=== PATIENT | female | born 1985 | race Caucasian/White ===

== ENCOUNTER 2022-04-16 12:47 | Emergency (ER) | payer BC, OTHER ==
[~2022-04-16] VITALS: Ht 154 cm; Wt 51.0 kg
[2022-04-16 12:59] VITALS: BP 109/76
[2022-04-16] MEDS ORDERED: TETANUS,DIPTH,PERTUSS P/F (BOOSTRIX) 0.5 ML VIAL IM ONE (13:15)
[2022-04-16] MEDS ORDERED: AUGMENTIN 875 MG TAB (AMOXICILLIN/CLAVULANATE) PO ONE (13:15)
--- NOTE | 2022-04-16 13:15 | ED Integumentary General ---
General Chief Complaint: Bite-Animal/Human/Insect Stated Complaint: ANIMAL BITE Nursing Triage Note: Patient has presented to ER with cc of a mouse bite to her right ring finger. She reports that at about 0300 this morning she picked up a stiky trap the the mouse bit her finger. She washed her finger well with water and peroxide, she used triple antibiotic ointment. She came to ER this after noon for evaluation of the bite. Source: patient Exam Limitations: no limitations History of Present Illness Date Seen by Provider: Apr 16, 2022 Time Seen by Provider: 12:57 Initial Comments This is a 37-year-old female who presented the ER with concerns of a mouse bite to her right fourth finger pad. States that around 0300 this morning she picked up a sticky pad the mouse was adhered to and it bit her finger. Immediately after the bite she thoroughly washed her hand, squeeze the tip to help squeeze out any additional bleeding, and covered in peroxide and triple antibiotic ointment.Last tetanus unknown. Allergies and Home Medications Allergies Coded Allergies: No Known Drug Allergies (Unverified , 04/16/22) Patient Home Medication List Home Medication List Reviewed: Yes Amoxicillin/Potassium Clav (Amox Tr-K Clv 875-125 mg Tab) 875 Mg-125 Mg Tablet, 1 EACH PO BID Prescribed by: MIRNA ELISE on 04/16/22 1322 Review of Systems Review of Systems Constitutional: see HPI Past Mehxfvb-Otbcoz-Wsmuin Hx Patient Social History Tobacco Use?: No Use of E-Cig and/or Vaping dev: No Substance use?: No Alcohol Use?: No Physical Exam Vital Signs Vital Signs - First Documented 04/16/22 12:59 Temp 36.2 Pulse 85 Resp 16 B/P (MAP) 109/76 (87) Pulse Ox 98 O2 Delivery Room Air Capillary Refill : General Appearance: WD/WN, no apparent distress HEENT: normal ENT inspection Neck: full range of motion, normal inspection Respiratory: no respiratory distress, no accessory muscle use Neurologic/Psychiatric: alert, normal mood/affect, oriented x 3 Skin: normal color, other (2 small puncture galindo on left 4th distal finger pad. Cap refill <2 seconds. ) Progress/Results/Core Measures Results/Orders My Orders Orders - MIRNA ELISE CARDIOLOGY FELLOW Amoxicillin/Clavulanate Tablet (Augmenti (04/16/22 13:15) Dipht,Pertuss(Acell),Tet Adult (Boostrix (04/16/22 13:15) Medications Given in ED Current Medications Medications Dose Ordered Sig/Reji Route Start Time Stop Time Status Last Admin Dose Admin Amoxicillin/ Clavulanate Potassium 875 mg ONCE ONCE PO 04/16/22 13:15 04/16/22 13:16 DC 04/16/22 13:15 875 MG Diphtheria/ Tetanus/Acell Pertussis 0.5 ml ONCE ONCE IM 04/16/22 13:15 04/16/22 13:16 DC 04/16/22 13:17 0.5 ML Vital Signs/I&O 04/16/22 12:59 Temp 36.2 Pulse 85 Resp 16 B/P (MAP) 109/76 (87) Pulse Ox 98 O2 Delivery Room Air Blood Pressure Mean: 87 Progress Progress Note : Progress Note Patient examined and she has 2 minimal puncture wounds at the distal third of her right fourth finger. Her last tetanus was unknown, she is agreeable to update this today. Applied iodine to her finger today. We will go ahead and treat with Augmentin prophylactically. With the source of the animal bite, small puncture wound at such a distal site would unlikely require postexposure prophylaxis for rabies. However, will go ahead and inquire with the local health department to confirm. 1315: Attempted to contact the local health department at this time, unable to make contact, voice message left. Discussed with patient that she is okay to discharge home and if they do recommend any additional treatment we will notify her via telephone and direct her to the appropriate facility for further treatment. She is comfortable with this and is ready to discharge. 1400: Contact made with the [facility] and states they discussed with bakery supervisor of the [facility] and they recommended no prophylactic rabies treatment at this time. Departure Impression Primary Impression: Bitten by mouse, initial encounter Disposition: HOME, SELF-CARE Condition: Improved Departure-Patient Inst. Decision time for Depature: 13:10 Referrals: NO,LOCAL PHYSICIAN (PCP/Family) Primary Care Physician Patient Instructions: Animal Bites (DC) Add. Discharge Instructions: Plan: 1. Monitor for any redness, swelling, warmth, purulent drainage, increased pain as he is may be signs of developing infection. 2. You will be given Augmentin you will take this twice a day as directed, if you have any GI upset you can take with food. 3. Take Tylenol or ibuprofen for pain and discomfort per package. 4. You can use ice 20 minutes at a time to help with swelling and pain. 5. Return to the ER for any new, concerning, worsening symptoms. 6. Clean your finger daily with mild soap and water, pat dry. All discharge instructions reviewed with patient and/or family. Voiced understanding. Scripts Amoxicillin/Potassium Clav (Amox Tr-K Clv 875-125 mg Tab) 875 Mg-125 Mg Tablet 1 EACH PO BID for 7 Days, #14 TAB 0 Refills Prov: MIRNA ELISE CARDIOLOGY FELLOW 04/16/22 MIRNA ELISE CARDIOLOGY FELLOW Apr 16, 2022 13:15
[2022-04-16] MEDS ORDERED: AMOX1TAB12 PO (13:22)
== END 2022-04-16 13:22 | disposition home or self-care (01) ==
LOC: EDUNIT# 12:47 → ER 12:50
DX: S61.254A Open bite of right ring finger without damage to nail, initial encounter (principal); Z23 Encounter for immunization; Z28.310 Unvaccinated for COVID-19; W53.01XA Bitten by mouse, initial encounter
CPT/HCPCS: 90715; 99284